=== PATIENT | female | born 1985 | race African-American/Black ===

== ENCOUNTER 2016-10-15 09:49 | Emergency (ER) | payer SELFPAY ==
[~2016-10-15] VITALS: Ht 162.6 cm; Wt 52.2 kg
[2016-10-15] MEDS ORDERED: NKM (10:22)
[2016-10-15] MEDS ORDERED: Tylenol #3 tab (300mg/30mg) PO ONE (10:45)
--- NOTE | 2016-10-15 11:36 | Diagnostic Imaging Report ---
Indication: Headache Technique: Contiguous 5 mm thick transaxial imaging of the head obtained in a Siemens Sensation [address] scanner. Soft tissue and bone windows generated. Total Dose length Product (DLP): [address] Dose Index Volume (CTDIvol): 70.38 mGy Comparison: none Findings: The size and configuration of the cortical sulci, basal cisterns, and ventricles are within normal limits for age. There is no mass effect, midline shift, or edema identified. There is no evidence of acute hemorrhage or abnormal intra-axial or extra-axial fluid collections. Right periorbital soft tissue swelling is present. Please refer to the maxillofacial CT report. Impression: No mass effect, edema or acute bleed. Right periorbital soft tissue contusion The CT scanner at [facility] is accredited by the [employer] and the scans are performed using dose optimization techniques as appropriate to a performed exam including Automatic Exposure control.
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
[2016-10-15] MEDS ORDERED: ACETAMINOPHEN-1 EAC1 ORAL (12:25)
[2016-10-15 12:35] VITALS: BP 120/82
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
== END 2016-10-15 12:37 | disposition home or self-care (01) ==
LOC: EMR 10:46
DX: S00.11XA Contusion of right eyelid and periocular area, initial encounter (principal); Y04.2XXA Assault by strike against or bumped into by another person, initial encounter; Y92.89 Other specified places as the place of occurrence of the external cause; R51 Headache
CPT/HCPCS: 70450; 70486; 99284